=== PATIENT | female | born 1995 | race Caucasian/White ===

== ENCOUNTER 2016-08-21 11:36 | Emergency (ER) | payer OTHER ==
[~2016-08-21] VITALS: Ht 157.5 cm; Wt 57.0 kg
[~2016-08-21 11:36] MED LIST: ANAPROX DS550 M1 PO; FLONASE16 G1 BOTH NARES; KEFLEX500 MG PO; Mycostatin TP; NOHOMEMEDS; NYSTATIN CREAM; PREDNISONE50 M1 NG; Prozac PO; TESSALON PERLE100 MG PO; TRAMADOL HCL50 MG PO
[2016-08-21 12:46] LABS: HEMATOCRIT 39.1 % (36.0-46.0); MCH 30.4 PG (29.0-34.0); MCHC 35.3 G/DL (30.0-36.0); MCV 86.1 FL (83-99); MEAN PLAT.VOLUME 9.4 uM^3 (9.5-12.4); PLATELET COUNT 215 K/uL (156-360); RBC DIS.WIDTH-CV 12.4 % (11.8-14.6); RBC DIS.WIDTH-SD 38.1 % (39-53); RED BLOOD COUNT 4.54 M/uL (3.80-5.20); WHITE BLOOD COUNT 7.8 K/uL (4.1-10.2)
[2016-08-21 13:00] LABS: CHLORIDE 106 mEq/L (99-109); POTASSIUM 3.9 mEq/L (3.7-5.4); SODIUM 140 mEq/L (136-147)
[2016-08-21 13:02] LABS: GLUCOSE 90 mg/dL (70-99)
[2016-08-21 13:03] LABS: ANION GAP 8 MEQ/L (2-14)
[2016-08-21 13:04] LABS: TOTAL BILIRUBIN 0.4 mg/dL (0.0-1.0)
[2016-08-21 13:05] LABS: ALKALINE PHOSPHATASE 47 IU/L (3-129)
[2016-08-21 13:06] LABS: GFR ESTIMATE (CALCULATED) > 59 mL/min/
[2016-08-21 13:07] LABS: UREA NITROGEN (BUN) 12 mg/dL (9-23)
[2016-08-21 13:09] LABS: LIPASE 20 U/L (1.0-51.0)
[2016-08-21 13:17] LABS: QUANTITATIVE HCG < 4.0 MIU/ML
[2016-08-21 14:33] LABS: ADD MIUA? YES; BILIRUBIN NEGATIVE; BLOOD LARGE; COLOR YELLOW ((YELLOW)); GLUCOSE (STRIP) NEGATIVE; KETONES NEGATIVE; LEUKOCYTES NEGATIVE; NITRITE NEGATIVE; PROTEIN (STRIP) NEGATIVE; SPECIFIC GRAVITY 1.016 (1.000-1.030); UROBILINOGEN 0.2 MG/DL (0.2-1.0)
[2016-08-21 14:42] LABS: BACTERIA NONE SEEN /HPF; EPITHELIAL CELLS RARE /HPF; MUCUS TRACE /LPF; RED BLOOD CELLS 30-40 /HPF (0-5); UCUL ADDED? NO; WHITE BLOOD CELLS 0-5 /HPF (0-5)
[2016-08-21 15:15] VITALS: BP 93/62
[2016-08-24 13:32] LABS: CHLAMYDIA TRACHOMATIS NEGATIVE; NEISSERIA GONORRHOEAE NEGATIVE
== END 2016-08-21 15:15 | disposition home or self-care (01) ==
LOC: EME 11:36
PROVIDERS: Physician Assistant Medical
DX: R10.32 Left lower quadrant pain (principal)
CPT/HCPCS: 76856; 80053; 81003; 83690; 84702; 85027; 87210; 87480; 87491; 87510; 87591; 87660; 99281; 99285; J1885; J7030

== ENCOUNTER 2017-04-23 04:05 | Emergency (ER) | payer OTHER ==
[~2017-04-23] VITALS: Ht 157.5 cm; Wt 58.0 kg
[2017-04-23 04:41] LABS: HEMATOCRIT 39.3 % (36.0-46.0); MCH 30.5 PG (29.0-34.0); MCHC 35.4 G/DL (30.0-36.0); MCV 86.4 FL (83-99); MEAN PLAT.VOLUME 9.6 uM^3 (9.5-12.4); PLATELET COUNT 244 K/uL (156-360); RBC DIS.WIDTH-CV 11.4 % (11.8-14.6); RBC DIS.WIDTH-SD 35.9 % (39-53); RED BLOOD COUNT 4.55 M/uL (3.80-5.20); WHITE BLOOD COUNT 9.5 K/uL (4.1-10.2)
[2017-04-23 04:53] LABS: CHLORIDE 103 mEq/L (99-109); POTASSIUM 3.5 mEq/L (3.7-5.4); SODIUM 140 mEq/L (136-147)
[2017-04-23 04:55] LABS: GLUCOSE 109 mg/dL (70-99)
[2017-04-23 04:56] LABS: ANION GAP 13 MEQ/L (2-14)
[2017-04-23 04:57] LABS: TOTAL BILIRUBIN 0.5 mg/dL (0.0-1.0)
[2017-04-23 04:58] LABS: SERUM ETHYL ALCOHOL < 10 mg/dL
[2017-04-23 04:59] LABS: ADD MIUA? YES; BILIRUBIN NEGATIVE; BLOOD MODERATE; COLOR YELLOW ((YELLOW)); GLUCOSE (STRIP) NEGATIVE; KETONES 20; LEUKOCYTES SMALL; NITRITE NEGATIVE; PROTEIN (STRIP) NEGATIVE; SPECIFIC GRAVITY 1.018 (1.000-1.030)
[2017-04-23 04:59] LABS: ALKALINE PHOSPHATASE 56 IU/L (3-129); GFR ESTIMATE (CALCULATED) > 59 mL/min/
[2017-04-23 05:00] LABS: UREA NITROGEN (BUN) 11 mg/dL (9-23)
[2017-04-23 05:06] LABS: BACTERIA RARE /HPF; EPITHELIAL CELLS 2+ /HPF; MUCUS TRACE /LPF; RED BLOOD CELLS 0-5 /HPF (0-5)
[2017-04-23 05:07] LABS: AMPHETAMINE NEGATIVE (500 ng/mL); BARBITURATES NEGATIVE (200 ng/mL); BENZODIAZEPINES NEGATIVE (150 ng/mL); COCAINE NEGATIVE (150 ng/mL); INTERNAL CONTROLS VALID? YES; METHADONE NEGATIVE (200 ng/mL); METHAMPHETAMINE NEGATIVE (500 ng/mL); OPIATES (MORPHINE) NEGATIVE (100 ng/mL); OXYCODONE NEGATIVE (100 ng/mL); PHENCYCLIDINE NEGATIVE (25 ng/mL); PROPOXYPHENE NEGATIVE (300 ng/mL); THC CANNABINOIDS NEGATIVE (50 ng/mL); TRICYCLIC ANTIDEPRESSANTS NEGATIVE (300 ng/mL)
[2017-04-23 05:35] VITALS: BP 122/62
== END 2017-04-23 05:36 | disposition home or self-care (01) ==
LOC: EME 04:05
PROVIDERS: Emergency Medicine
DX: F32.9 Major depressive disorder, single episode, unspecified (principal); F41.9 Anxiety disorder, unspecified; Z81.8 Family history of other mental and behavioral disorders; Z72.0 Tobacco use
CPT/HCPCS: 80053; 81003; 85027; 90839; 99281; 99283; G0480

== ENCOUNTER 2017-07-06 14:56 | Emergency (ER) | payer OTHER ==
[~2017-07-06] VITALS: Ht 157.5 cm; Wt 60.4 kg
[2017-07-06 17:31] VITALS: BP 116/76
[2017-07-06] MEDS ORDERED: MOTRIN600 MG PO (20:49)
== END 2017-07-06 21:25 | disposition home or self-care (01) ==
LOC: EME 14:56
DX: S16.1XXA Strain of muscle, fascia and tendon at neck level, initial encounter (principal); S20.219A Contusion of unspecified front wall of thorax, initial encounter; S46.912A Strain of unspecified muscle, fascia and tendon at shoulder and upper arm level, left arm, initial encounter; S43.002A Unspecified subluxation of left shoulder joint, initial encounter; V00.311A Fall from snowboard, initial encounter; W00.0XXA Fall on same level due to ice and snow, initial encounter; Y93.23 Activity, snow (alpine) (downhill) skiing, snowboarding, sledding, tobogganing and snow tubing; Y92.838 Other recreation area as the place of occurrence of the external cause; F17.200 Nicotine dependence, unspecified, uncomplicated
CPT/HCPCS: 71046; 72050; 99281; 99284

== ENCOUNTER 2017-11-29 10:38 | Emergency (ER) | payer OTHER ==
[~2017-11-29] VITALS: Ht 157.5 cm; Wt 55.6 kg
[~2017-11-29 10:38] MED LIST changes: +MOTRIN600 MG PO
[2017-11-29 11:47] LABS: HEMATOCRIT 37.2 % (36.0-46.0); HEMOGLOBIN 13.2 G/DL (11.9-15.5); MCH 31.7 PG (29.0-34.0); MCHC 35.5 G/DL (30.0-36.0); MCV 89.2 FL (83-99); PLATELET COUNT 210 K/uL (156-360); RBC DIS.WIDTH-CV 11.4 % (11.8-14.6); RBC DIS.WIDTH-SD 36.9 % (39-53); RED BLOOD COUNT 4.17 M/uL (3.80-5.20); WHITE BLOOD COUNT 6.2 K/uL (4.1-10.2)
[2017-11-29 12:03] LABS: CHLORIDE 106 mEq/L (99-109); SODIUM 139 mEq/L (136-147)
[2017-11-29 12:05] LABS: GLUCOSE 96 mg/dL (70-99)
[2017-11-29 12:09] LABS: CREATININE 0.8 mg/dL (0.6-1.3); GFR ESTIMATE (CALCULATED) > 59 mL/min/; UREA NITROGEN (BUN) 10 mg/dL (9-23)
[2017-11-29 12:15] LABS: TROP-I INTERPRETATION NEGATIVE; TROPONIN-I < 0.01 ng/mL (0.0-0.30)
[2017-11-29 12:18] LABS: QUANTITATIVE HCG < 4.0 MIU/ML
[2017-11-29 15:43] LABS: TROP-I INTERPRETATION NEGATIVE; TROPONIN-I < 0.01 ng/mL (0.0-0.30)
[2017-11-29 16:10] VITALS: BP 123/68
== END 2017-11-29 16:05 | disposition home or self-care (01) ==
LOC: EME 10:38
PROVIDERS: Physician Assistant Medical
DX: R07.89 Other chest pain (principal); G43.909 Migraine, unspecified, not intractable, without status migrainosus; F17.200 Nicotine dependence, unspecified, uncomplicated; Z91.09 Other allergy status, other than to drugs and biological substances
CPT/HCPCS: 71046; 71275; 80048; 84484; 84702; 85027; 85379; 93005; 99281; 99285; J7030